=== PATIENT | female | born 2000 | race Hispanic/Latino ===

== ENCOUNTER 2023-12-20 19:37 | Inpatient (IN) | payer OTHER ==
[~2023-12-20] VITALS: Ht 166.4 cm; Wt 136.1 kg
[2023-12-20 22:26] LABS: HEMATOCRIT 37.3 % (35.0-50.0); HEMOGLOBIN 12.2 g/dL (12.0-18.0); MCH 29.4 (27-36); MCHC 32.7 g/dl (30-36); MCV 90.1 fl (81-99); RBC 4.14 M/ul (4.3-5.7); RDW 13.8 (10.5-15.0)
[2023-12-20] MEDS ORDERED: LIDOCAINE 2% VISCOUS 6 ML SYR TOP ONE ×2 (22:30)
[2023-12-20] MEDS ORDERED: CALCIUM CARBONATE 500 MG CHEW PO PRN (22:30)
[2023-12-20] MEDS ORDERED: MAGNESIUM HYDROXIDE/AL HYDROX 30 ML CUP PO PRN (22:30)
[2023-12-20] MEDS ORDERED: OXYTOCIN/DEXTROSE 5% 20 UNITS/100 ML BAG IV SCH (22:30)
[2023-12-20 23:02] LABS: ABO B; ANTIBODY SCREEN NEGATIVE; RH POSITIVE
[2023-12-20] MEDS ORDERED: LACTATED RINGER'S 1,000 ML IV ONE (23:15)
[2023-12-20] MEDS ORDERED: MAGNESIUM SULFATE 1,000 ML IV ONE (23:23)
[2023-12-20] MEDS ORDERED: LABETALOL HCL 100 MG/20 ML MDV ONE (23:24)
--- NOTE | 2023-12-20 23:25 | PR ---
[facility] [address] [facility] [place], [place] [address] Signed PP Progress Notes Datetime Report Generated by CPN: 12/20/2023 23:25 SUBJECTIVE: [id number] Pain: Within Normal Limits Pain Comments: Sustained elevated BPs Nausea/Vomiting: Denies Vital Signs: [id number] Vital Signs: Reviewed Notable Details: Sustained elevated BPs Cardiovascular: Normal Respiratory: Normal Abdomen/Uterus: Normal Lochia: Normal Extremities: Normal Incision: Not Applicable IMPRESSION/PLAN/PROCEDURES: [id number] Other Impression: Preeclampsia w/ severe features Other Plans: Magnesium sulfate and IV antihypertensives Progress Notes: Pt w/ sustained elevated BPs. CMP, uric acid, urine pro/creat ratio ordered and reviewed recent CBC. Will start Labetalol 20mg IV per protocol and will start Mag Sulfate 6g IV bolus followed by 2g / hr maint. Q6 hr labs ordered. Marie cath to be inserted. Reviewed w/ pt and all questions answered. Signing Physician: Avtar Hanson DO Copies: ~ *Electronically Signed* 12/20/23 9315 AVTAR HANSON (SANGITA) DO PATIENT NAME: JESSICA ECHAVARRIA PROGRESS NOTE DATE OF : 98 PHYSICIAN: AVTAR HANSON (SANGITA) DO RPT #: [id number] REPORT IS CONFIDENTIAL AND NOT TO BE RELEASED WITHOUT AUTHORIZATION
[2023-12-20] MEDS ORDERED: LABETALOL HCL 100 MG/20 ML MDV IV PRN ×3 (23:30)
[2023-12-20] MEDS ORDERED: CALCIUM GLUCONATE 1,000 MG/10 ML VIAL IV PRN (23:30)
[2023-12-20] MEDS ORDERED: MAGNESIUM SULFATE 1,000 ML IV SCH (23:30)
[2023-12-20] MEDS ORDERED: LACTATED RINGER'S 1,000 ML IV SCH (23:30)
[2023-12-20 23:33] LABS: ALBUMIN/GLOBULIN RATIO 0.6 (1.1-2.4); BILIRUBIN, TOTAL 0.5 ng/dL (0.2-1.0); BUN/CREATININE RATIO 15.62 (6.0-28.6); CALCIUM 9.2 mg/dL (8.5-10.1); CREATININE, SERUM 0.96 mg/dL (0.55-1.02)
[2023-12-21 00:07] LABS: CREATININE, RANDOM URINE 61.36 mg/dL (NOT ESTABLISHED)
[2023-12-21 00:08] LABS: PROTEIN/CREATININE RATIO 6.82 mg/mg (0.010-0.107)
[2023-12-21 00:10] LABS: AMPHETAMINES, URINE NEGATIVE (NEGATIVE); BARBITURATES, URINE NEGATIVE (NEGATIVE); BENZODIAZEPINE, URINE NEGATIVE (NEGATIVE); BUPRENORPHINE, URINE NEGATIVE (NEGATIVE); CANNABINOID, URINE POSITIVE (NEGATIVE); COCAINE, URINE NEGATIVE (NEGATIVE); ECSTASY, URINE NEGATIVE (NEGATIVE); FENTANYL, URINE NEGATIVE (NEGATIVE); METHADONE, URINE NEGATIVE (NEGATIVE); OPIATES, URINE NEGATIVE (NEGATIVE); OXYCODONE, URINE NEGATIVE (NEGATIVE); PHENCYCLIDINE, URINE NEGATIVE (NEGATIVE)
[2023-12-21] MEDS ORDERED: MAGNESIUM HYDROXIDE 30 ML UDC PO PRN (00:15)
[2023-12-21] MEDS ORDERED: ACETAMINOPHEN 325 MG TAB PO PRN (00:15)
[2023-12-21] MEDS ORDERED: HYDROCORTISONE ACETATE 25 MG SUPP PR PRN (00:15)
[2023-12-21] MEDS ORDERED: BENZOCAINE 60 ML AEROSOL TOP PRN (00:15)
[2023-12-21] MEDS ORDERED: OXYCODONE HCL 5 MG TAB PO PRN (00:15)
[2023-12-21] MEDS ORDERED: IBUPROFEN 600 MG TAB PO PRN (00:15)
[2023-12-21] MEDS ORDERED: CALCIUM CARBONATE 500 MG CHEW PO PRN (00:15)
[2023-12-21] MEDS ORDERED: MAGNESIUM HYDROXIDE/AL HYDROX 30 ML CUP PO PRN (00:15)
[2023-12-21 01:13] VITALS: BP 148/83
[2023-12-21 05:26] LABS: HEMATOCRIT 33.6 % (35.0-50.0); MCH 29.4 (27-36); MCHC 32.7 g/dl (30-36); MCV 90.2 fl (81-99); RBC 3.72 M/ul (4.3-5.7)
[2023-12-21 05:45] LABS: ALBUMIN 2.5 g/dL (3.4-5.0); ALBUMIN/GLOBULIN RATIO 0.57 (1.1-2.4); ANION GAP 15.9 (7-21); BILIRUBIN, TOTAL 0.4 ng/dL (0.2-1.0); BUN/CREATININE RATIO 13.63 (6.0-28.6); CALCIUM 8.3 mg/dL (8.5-10.1); CREATININE, SERUM 0.88 mg/dL (0.55-1.02); MAGNESIUM 4.6 mg/dL (1.8-2.4); POTASSIUM 3.9 mmol/L (3.5-5.1); PROTEIN, TOTAL 6.9 g/dL (6.4-8.2)
--- NOTE | 2023-12-21 08:58 | PR ---
[facility] [address] [facility] [place], [place] [address] Signed PP Progress Notes Datetime Report Generated by CPCamden: 12/21/2023 08:58 SUBJECTIVE: [id number] Pain: Within Normal Limits Pain Comments: Sustained elevated BPs Nausea/Vomiting: Denies Vital Signs: [id number] Vital Signs: Reviewed Notable Details: HTN--not severe Cardiovascular: Normal Respiratory: Normal Abdomen/Uterus: Abnormal Lochia: Normal Vulva/Perineum: Not Done Breasts: Not Done CVA Tenderness: Not Done Extremities: Normal Incision: Not Applicable Progress: Abnormal Exam Comments: Fundus firm, NT @ U-1. DTRs 1+ IMPRESSION/PLAN/PROCEDURES: [id number] Impression: Normal Progression; Difficulties; Induced Hypertension Other Impression: Preeclampsia w/ severe features Plan: Continue Present Management Other Plans: Magnesium sulfate and IV antihypertensives Progress Notes: Feeling well though having breast feeding issues. BPs continue to be elevated though not severe. Will continue mag through this afternoon and reassess at that time. Will continue nifedipine as well. Signing Physician: Dee Mcbride MD Copies: ~ *Electronically Signed* 12/21/23 0858 DEE MCBRIDE MD PATIENT NAME: JESSICA ECHAVARRIA PROGRESS NOTE DATE OF : 98 PHYSICIAN: DEE MCBRIDE MD RPT #: [id number] REPORT IS CONFIDENTIAL AND NOT TO BE RELEASED WITHOUT AUTHORIZATION
[2023-12-21] MEDS ORDERED: SENNOSIDES/DOCUSATE 1 EA TAB PO SCH (09:00)
[2023-12-21 12:13] LABS: HEMATOCRIT 30.9 % (35.0-50.0); HEMOGLOBIN 10.2 g/dL (12.0-18.0); MCH 29.7 (27-36); MCV 89.9 fl (81-99); RBC 3.43 M/ul (4.3-5.7); RDW 13.9 (10.5-15.0)
[2023-12-21 12:28] LABS: ALBUMIN 2.4 g/dL (3.4-5.0); ALBUMIN/GLOBULIN RATIO 0.59 (1.1-2.4); ANION GAP 14.1 (7-21); BILIRUBIN, TOTAL 0.6 ng/dL (0.2-1.0); BUN/CREATININE RATIO 12.64 (6.0-28.6); CALCIUM 7.7 mg/dL (8.5-10.1); CREATININE, SERUM 0.87 mg/dL (0.55-1.02); MAGNESIUM 5.6 mg/dL (1.8-2.4); POTASSIUM 4.1 mmol/L (3.5-5.1); PROTEIN, TOTAL 6.5 g/dL (6.4-8.2)
[2023-12-21 18:04] LABS: HEMATOCRIT 32.1 % (35.0-50.0); HEMOGLOBIN 10.6 g/dL (12.0-18.0); MCH 29.7 (27-36); MCHC 32.9 g/dl (30-36); MCV 90.2 fl (81-99); RBC 3.56 M/ul (4.3-5.7); RDW 14.1 (10.5-15.0)
[2023-12-21] MEDS ORDERED: ENOXAPARIN SODIUM 40 MG/0.4 ML SYR SUB-Q SCH (18:15)
--- NOTE | 2023-12-21 18:17 | PR ---
[facility] [address] [facility] [place], [place] [address] Signed PP Progress Notes Datetime Report Generated by SUMAN: 12/21/2023 18:17 SUBJECTIVE: [id number] Pain: Within Normal Limits Pain Comments: Sustained elevated BPs Nausea/Vomiting: Denies Vital Signs: [id number] Vital Signs: Reviewed Notable Details: HTN--mild Cardiovascular: Not Done Respiratory: Not Done Abdomen/Uterus: Abnormal Lochia: Normal Vulva/Perineum: Not Done Breasts: Not Done CVA Tenderness: Not Done Extremities: Normal Incision: Not Applicable Progress: Normal Exam Comments: Fundus firm, NT @ U-1. CMP Nl other than BUN/Creat 11/0.87 Mag level 5.6 IMPRESSION/PLAN/PROCEDURES: [id number] Impression: Normal Progression; Induced Hypertension Other Impression: Preeclampsia w/ severe features Plan: Continue Present Management Other Plans: D/C Mag, ambulate Progress Notes: BPs are overall doing well today. I think magnesium can be stopped and will continue nifedipine orally. Will place SCDs and begin Lovenox given her risk of DVT. Will increase her ambulation and continue close observation. Signing Physician: Dee Mcbride MD Copies: ~ *Electronically Signed* 12/21/23 611 DEE MCBRIDE MD PATIENT NAME: JESSICA ECHAVARRIA PROGRESS NOTE DATE OF : 98 PHYSICIAN: DEE MCBRIDE MD RPT #: [id number] REPORT IS CONFIDENTIAL AND NOT TO BE RELEASED WITHOUT AUTHORIZATION
[2023-12-21 18:23] LABS: ALBUMIN 2.5 g/dL (3.4-5.0); ALBUMIN/GLOBULIN RATIO 0.58 (1.1-2.4); ANION GAP 14.9 (7-21); BILIRUBIN, TOTAL 0.5 ng/dL (0.2-1.0); BUN/CREATININE RATIO 9.9 (6.0-28.6); CALCIUM 7.4 mg/dL (8.5-10.1); CREATININE, SERUM 1.01 mg/dL (0.55-1.02); MAGNESIUM 5.8 mg/dL (1.8-2.4); POTASSIUM 3.9 mmol/L (3.5-5.1); PROTEIN, TOTAL 6.8 g/dL (6.4-8.2)
[2023-12-21] MEDS ORDERED: WITCH HAZEL/GLYCERIN 1 EA PAD TOP PRN (23:45)
--- NOTE | 2023-12-22 08:43 | PR ---
[facility] [address] [facility] [place], [place] [address] Signed PP Progress Notes Datetime Report Generated by CPCamden: 12/22/2023 08:43 SUBJECTIVE: [id number] Pain: Within Normal Limits Pain Comments: Sustained elevated BPs Nausea/Vomiting: Denies Vital Signs: [id number] Vital Signs: Reviewed Notable Details: intermittent HTN--not severe Cardiovascular: Not Done Respiratory: Not Done Abdomen/Uterus: Abnormal Lochia: Normal Vulva/Perineum: Not Done Breasts: Not Done CVA Tenderness: Not Done Extremities: Abnormal Incision: Not Applicable Progress: Normal Exam Comments: Fundus firm, NT @ U-1. Hemogram not back IMPRESSION/PLAN/PROCEDURES: [id number] Impression: Normal Progression; Induced Hypertension Other Impression: Preeclampsia w/ severe features Plan: Continue Present Management Other Plans: D/C Mag, ambulate Progress Notes: Doing better overall. She is still on the nifedipine w/ intermittent elevations. Social situation also needs clarification. Will continue observation for now w/ probable discharge tomorrow. Signing Physician: Dee Mcbride MD Copies: ~ *Electronically Signed* 12/22/23 0843 DEE MCBRIDE MD PATIENT NAME: JESSICA ECHAVARRIA PROGRESS NOTE DATE OF : 98 PHYSICIAN: DEE MCBRIDE MD RPT #: [id number] REPORT IS CONFIDENTIAL AND NOT TO BE RELEASED WITHOUT AUTHORIZATION
[2023-12-22 08:44] LABS: HEMATOCRIT 31.9 % (35.0-50.0); HEMOGLOBIN 10.5 g/dL (12.0-18.0); MCH 29.9 (27-36); MCV 90.6 fl (81-99); RBC 3.52 M/ul (4.3-5.7); RDW 14.1 (10.5-15.0)
[2023-12-22] MEDS ORDERED: MEASLES,MUMPS&RUBELLA VACCINE 1 VIAL VIAL SUB-Q ONE (08:45)
[2023-12-23] MEDS ORDERED: ferumoxytoL 510 MG in SODIUM CHLORIDE 0.9% 100 ML IV ONE (07:15)
--- NOTE | 2023-12-23 07:22 | PR ---
[facility] [address] [facility] [place] [place] [address] Signed PP Progress Notes Datetime Report Generated by CPCamden: 12/23/2023 07:22 SUBJECTIVE: [id number] Pain: Within Normal Limits Pain Comments: Sustained elevated BPs Nausea/Vomiting: Denies Vital Signs: [id number] Vital Signs: Reviewed Notable Details: mild HTN EXAM: Ongoing Cardiovascular: Not Done Respiratory: Not Done Abdomen/Uterus: Abnormal Lochia: Normal Vulva/Perineum: Not Done Breasts: Not Done CVA Tenderness: Not Done Extremities: Normal Incision: Not Applicable Progress: Normal Exam Comments: Fundus firm, NT @ U-1. H/H 10.5/31.9, WBC 14, plat 171k IMPRESSION/PLAN/PROCEDURES: [id number] Impression: Normal Progression; Induced Hypertension Other Impression: Preeclampsia w/ severe features Plan: Discharge Other Plans: D/C Mag, ambulate Procedures: Rubella Progress Notes: Doing well though BPs still little elevated. She will need to continue her Procardia. I do feel she is stable for D/C. Signing Physician: Dee Mcbride MD Copies: ~ *Electronically Signed* 12/23/23721 DEE MCBRIDE MD PATIENT NAME: RON ODENJESSICA YEAGER PROGRESS NOTE DATE OF : 98 PHYSICIAN: DEE MCBRIDE MD RPT #: [id number] REPORT IS CONFIDENTIAL AND NOT TO BE RELEASED WITHOUT AUTHORIZATION
[2023-12-23 09:07] VITALS: BP 127/85
[2023-12-23] MEDS ORDERED: MEASLES,MUMPS&RUBELLA VACCINE 1 VIAL VIAL SUB-Q ONE (09:30)
== END 2023-12-23 12:00 | disposition home or self-care (01) | DRG 807 ==
LOC: FBCO 19:37 → FBC 21:30
PROVIDERS: Obstetrics & Gynecology; ADMIT Obstetrics & Gynecology; ATTEND Obstetrics & Gynecology
PROC: 10E0XZZ Delivery of Products of Conception, External Approach (ICD-10-PCS; principal; 2023-12-20)
PROC: 0KQM0ZZ Repair Perineum Muscle, Open Approach (ICD-10-PCS; 2023-12-20)
DX: O62.3 Precipitate labor (principal); Z37.0 Single live birth; O14.14 Severe pre-eclampsia complicating childbirth; O99.344 Other mental disorders complicating childbirth; F32.A Depression, unspecified; O99.214 Obesity complicating childbirth; Z3A.38 38 weeks gestation of pregnancy; O70.1 Second degree perineal laceration during delivery; O69.81X0 Labor and delivery complicated by cord around neck, without compression, not applicable or unspecified; Z90.49 Acquired absence of other specified parts of digestive tract; Z98.890 Other specified postprocedural states; Z3A.39 39 weeks gestation of pregnancy; Z87.891 Personal history of nicotine dependence
CPT/HCPCS: 36415; 59025; 80053; 80307; 82570; 83735; 84156; 84550; 85027; 85060; 86850; 86900; 86901; 90707; A9270; G0463; J1650; J2590; J3475; J7121